=== PATIENT | female | born 1940 | race Caucasian/White ===

== ENCOUNTER → 2017-04-11 | Outpatient (CLI) | payer OTHER | LOC: NUC 12:51 | DX: M81.0 Age-related osteoporosis without current pathological fracture (principal); M85.89 Other specified disorders of bone density and structure, multiple sites; Z78.0 Asymptomatic menopausal state ==

== ENCOUNTER → 2017-09-10 | Outpatient (CLI) | payer OTHER | LOC: RAD 11:10 | DX: M17.12 Unilateral primary osteoarthritis, left knee (principal) ==

== ENCOUNTER → 2020-08-19 | Outpatient (CLI) | payer OTHER | LOC: LAB 09:04 | PROVIDERS: ATTEND Surgery | DX: Z01.812 Encounter for preprocedural laboratory examination (principal); Z20.828 Contact with and (suspected) exposure to other viral communicable diseases ==

== ENCOUNTER → 2020-08-24 | Day surgery (SDC) | payer OTHER ==
[~2020-08-24] VITALS: Ht 154.9 cm; Wt 73.9 kg
[~2020-08-24] MED LIST: ALENDRONATE SOD70 MG PO; ATORVASTATIN CA20 MG PO; CALCIUM + D3 E1 EACH PO; CENTRUM SILVER1 EAC6 PO; EVISTA PO; FISH OIL 1,0001 EAC9 PO; HYDROCODON-ACE1 EAC7 PO; NORVASC5 MG PO; STRESS B-COMPL1 EACH PO; VITAMIN B122500 MCG PO; VITAMIN D21250 MC1 PO; VITAMIN D325 MCG PO; VITAMIN E200 UNI1 PO
--- NOTE | ~2020-08-24 | O ---
[facility] [place] [address] OPERATIVE REPORT Name: DONOVAN CONTRERAS Room #: REG [facility].#: [id number] Admission: 08/24/20 Attend Phys: Sergio Morejon MD Discharge: Date of : 42 Report #: [id number] THIS REPORT FOR: cc: Thomas Pimentel Steven F. DO Chu, Peter Y. MD ~ DATE OF SERVICE: 08/24/2020 PREOPERATIVE DIAGNOSIS: Symptomatic right inguinal hernia. POSTOPERATIVE DIAGNOSIS: Symptomatic right inguinal hernia and identified right direct inguinal hernia. PROCEDURE PERFORMED: Laparoscopic properitoneal repair of right direct inguinal hernia with mesh. SURGEON: Sergio Morejon MD ANESTHESIA: General anesthesia. COMPLICATIONS: None. ESTIMATED BLOOD LOSS: 5 mL. PROCEDURE NOTE: With the patient under general anesthesia, Dixon catheter was placed, IV antibiotic was administered. The labial area on placing the catheter was noted to be friable. The urine is clear. Abdomen is prepped and draped in sterile fashion. Timeout was performed. A 0.25% Marcaine was used to dissect the skin adjacent to the umbilicus on the right side. Transverse incision was made about 2 cm in size. Fascia was identified. The anterior rectus fascia was incised transversely. Muscle was spread. The space between the rectus muscle and the posterior fascia was bluntly dissected with fingertip. The space was created without difficulty. __ balloon trocar 11 mm was placed in the space. CO2 was administered. Under visualization, a 5 mm trocar was placed at the midline about an inch and a half below the umbilicus. Properitoneal space was opened up. A second 5 mm trocar was placed slightly left of the midline about an inch to an inch and a half inferior to the initial 5 mm trocar. Dissection was carried out freeing the lateral abdominal wall lateral to the epigastric vessel. The patient had a fat that was pushing out through the fascia defect, which is located medial to the epigastric vessel. This is a direct defect. The fat was reduced out of the wall and the direct defect was able to be seen. The defect seemed to go out and turns medially likely causing more of a pinching symptom. The internal ring was identified. The round ligament was seen and there was no indirect component. I did go ahead and cauterize and divided it. This allowed the mesh to sit flat up against the wall. A large right sided [facility] [address] [place] [address] OPERATIVE REPORT Name: DONOVAN CONTRERAS Room #: REG [facility]#: [id number] Admission: 08/24/20 Attend Phys: Sergio Morejon MD Discharge: Date of : 42 Report #: [id number] 3DMax lightweight mesh was used. This was placed through the 11 mm trocar. This was opened up in the properitoneal space without difficulty. Mesh was then tacked laterally to the abdominal wall lateral to the inferior epigastric vessels with SorbaFix. This was tacked medially over the Roberto's ligament right over the pubic bone. Superomedially, the mesh was tacked to the rectus muscle. The mesh seated well. This is covering the internal ring and the direct defect well. CO2 was evacuated and trocars were removed. At the umbilical incision, the posterior fascia was identified. The fascia was opened up and peritoneum was opened to release the intraperitoneal air. This happened pretty frequently during the dissection. The posterior fascia was closed with [id number] 0 Vicryl. The anterior fascia was also closed with 0 [id number] Vicryl x 2. Skin was irrigated. Skin was closed with 5-0 PDS. Steri-Strip, Band-Aids applied. The patient tolerated the procedure well. By: [id number] Sergio Morejon MD /nt
[2020-08-24 10:09] VITALS: BP 132/73
--- NOTE | 2020-08-24 10:13 | EKG ---
[address] [address] ELECTROCARDIOGRAM REPORT Name: LOLITA CONTRERASERA Stevo Room #: REG [facility]#: [id number] Admission: 08/24/20 Attend Phys: Sergio Morejon MD Discharge: Date of : 42 Report #: [id number] [facility] Test Date: 2020-08-24 Test Time: 09:23:35 Pat Name: DONOVAN CONTRERAS Department: Room: Gender: F Nursing Attendant: CARLOS : 1940 Requested By: Sergio Morejon Order Number: [id number] MD: Edwin Tan Measurements Intervals [place] Rate: 81 P: 63 MO: 134 QRS: 12 QRSD: 102 T: 15 QT: 374 QTc: 434 Interpretive Statements Sinus rhythm No previous ECG available for comparison Electronically Signed On 08-24-2020 10:12:54 [employer] by Edwin Tan [email or web address] <ELECTRONICALLY SIGNED> By: Edwin Tan MD, [facility] 08/24/20 1012 0923 2 Edwin Tan MD, FACC /EPI
[2020-08-24 14:02] VITALS: BP 132/73
== END | disposition home or self-care (01) ==
LOC: OR
PROVIDERS: ATTEND Surgery
DX: K40.90 Unilateral inguinal hernia, without obstruction or gangrene, not specified as recurrent (principal); I10 Essential (primary) hypertension; E78.5 Hyperlipidemia, unspecified; Z98.890 Other specified postprocedural states; Z79.899 Other long term (current) drug therapy; Z90.49 Acquired absence of other specified parts of digestive tract; Z90.710 Acquired absence of both cervix and uterus
CPT/HCPCS: 50010; 50101; 50411; 50455; 50507; 50555; 50848; 52265; 53065; 53307; 56525; 56526; 62110; 62900; 70005

== ENCOUNTER → 2021-04-20 | Outpatient (CLI) | payer OTHER | LOC: ULTRA 09:23 | PROVIDERS: ATTEND Neuromusculoskeletal Medicine & OMM | DX: M81.0 Age-related osteoporosis without current pathological fracture (principal); R19.02 Left upper quadrant abdominal swelling, mass and lump; M85.88 Other specified disorders of bone density and structure, other site ==